=== PATIENT | female | born 1970 | race African-American/Black ===

== ENCOUNTER 2018-12-13 21:22 | Emergency (ER) | payer OTHER ==
[2018-12-13] MEDS ORDERED: ASPIRIN 81 MG CHEWABLE TAB PO ONE (21:43)
--- NOTE | 2018-12-13 21:47 | EDPHY ---
H & P Stated Complaint: C/O lt shoulder pain sat- today pain rad to front of chest Time Seen by Provider: 12/13/18 21:34 HPI/ROS: CHIEF COMPLAINT: Chest pain HISTORY OF PRESENT ILLNESS: The patient is a 48-year-old morbidly obese female who comes to the emergency department complaining of chest pain. She developed pain below her left shoulder blade about 2 days ago. It is been intermittent but worsens with exertion or deep inspiration. Then today around noon it began to radiate around to her chest. It is not worse with palpation or movement. No nausea vomiting or diaphoresis. No shortness of breath. No leg pain or swelling. She did drive to [place] and back 2 weeks ago. She does not smoke. No history of cardiac of pulmonary disease. Severity: Mild Modifying factors: Worsened with exertion REVIEW OF SYSTEMS: Constitutional: denies: chills, fever, recent illness, recent injury EENTM: denies: blurred vision, double vision, nose congestion Respiratory: denies: cough, shortness of breath Cardiac: See HPI denies: irregular heart rate, lightheadedness, palpitations Gastrointestinal/Abdominal: denies: abdominal pain, diarrhea, nausea, vomiting, blood streaked stools Genitourinary: denies: dysuria, frequency, hematuria, pain Musculoskeletal: See HPI denies: joint pain, muscle pain Skin: denies: lesions, rash, jaundice, bruising Neurological: denies: headache, numbness, paresthesia, tingling, dizziness, weakness Hematologic/Lymphatic: denies: blood clots, easy bleeding, easy bruising Immunologic/allergic: denies: HIV/AIDS, transplant 10 systems reviewed and negative except as noted EXAM: GENERAL: Well-appearing, morbidly obese and in no acute distress. HEAD: Atraumatic, normocephalic. EYES: Pupils equal round and reactive to light, extraocular movements intact, sclera anicteric, conjunctiva are normal. ENT: TMs normal, nares patent, oropharynx clear without exudates. Moist mucous membranes. NECK: Normal range of motion, supple without lymphadenopathy or JVD. LUNGS: Breath sounds clear to auscultation bilaterally and equal. No wheezes rales or rhonchi. HEART: Regular rate and rhythm without murmurs, rubs or gallops. ABDOMEN: Soft, nontender, normoactive bowel sounds. No guarding, no rebound. No masses appreciated. BACK: No CVA tenderness, no spinal tenderness, step-offs or deformities EXTREMITIES: Normal range of motion, no pitting or edema. No clubbing or cyanosis. NEUROLOGICAL: Cranial nerves II through XII grossly intact. Normal speech, normal gait. 5/5 strength, normal movement in all extremities, normal sensation , normal reflexes PSYCH: Normal mood, normal affect. SKIN: Warm, dry, normal turgor, no visible rashes or lesions. Source: Patient Exam Limitations: No limitations - Personal History LMP (Females 10-55): 22-28 Days Ago Current Tetanus Diphtheria and Acellular Pertussis (TDAP): Yes - Medical/Surgical History Hx Asthma: No Hx Chronic Respiratory Disease: No Hx Diabetes: No Hx Cardiac Disease: No Hx Renal Disease: No Hx Cirrhosis: No Hx Alcoholism: No Hx HIV/AIDS: No Other PMH: - Family History Significant Family History: No pertinent family hx - Social History Smoking Status: Never smoked Alcohol Use: None Constitutional: Initial Vital Signs Temperature (C) 36.6 C 12/13/18 21:32 Heart Rate 80 12/13/18 21:32 Respiratory Rate 20 12/13/18 21:32 Blood Pressure 158/109 H 12/13/18 21:32 O2 Sat (%) 97 12/13/18 21:32 O2 Delivery Mode Room Air Allergies/Adverse Reactions: No Known Allergies Allergy (Unverified 12/13/18 21:29) Home Medications: Medication Instructions Recorded NK [No Known Home Meds] 12/13/18 Medical Decision Making - Diagnostics EKG Interpretation: An EKG obtained and was read and documented in trace view. Please see trace view for full reading and report. Sinus rhythm, no acute ischemic changes Imaging: Discussed imaging studies w/ transitions rn care coordinator Radiologist ED Course/Re-evaluation: 10:20 p.m. patient's D-dimer is positive. Will send for CT angio. Patient is currently pain free. Troponin and EKG reassuring. 11:[address] negative. Patient and feel reassured. Her troponin is negative after more than day of symptoms. We discussed persistent slight risk of cardiac disease. She declines further treatment or workup. I will have her follow-up with cardiology office for stress testing. We discussed other possible etiologies as well. We discussed indications for returning to the ER. Differential Diagnosis: Partial list of the Differential diagnosis considered include but were not limited to; acute coronary disease, PE, musculoskeletal pain, GERD and although unlikely based on the history and physical exam, I also considered pneumothorax, biliary disease. - Data Points Medications Given: Discontinued Medications Aspirin (Aspirin) 324 mg PO EDNOW ONE Stop: 12/13/18 21:44 Last Admin: 12/13/18 21:50 Dose: 324 mg Point of Care Test Results: CBC CBC Collection Date 12/13/18 CBC Collection Time 21:32 WBC 6.66 RBC 4.21 HGB 11.2 HCT 34.9 PLT 248 Neut # 3.29 Neut 49.4 LYMPH # 2.86 LYMPH 42.9 MCV 82.9 Chemistry 12/13/18 12/13/18 21:48 21:47 POC Sodium 138 mEq/L mEq/L (135-145) POC Potassium 3.9 mEq/L mEq/L (3.3-5.0) POC Chloride 104.0 mEq/L mEq/L (97-110) POC Total CO2 27 mEq/L mEq/L (22-31) POC BUN 11 mg/dL mg/dL (7-23) POC Creatinine 0.7 mg/dL mg/dL (0.6-1.0) POC Glucose 95 mg/dL mg/dL (70-100) POC Calcium 9.1 mg/dL mg/dL (8.5-10.4) POC Total Bilirubin 0.7 mg/dL mg/dL (0.1-1.4) POC AST 22 IU/L IU/L (14-46) POC ALT 11 IU/L IU/L (9-52) POC Alk Phosphatase 72 IU/L IU/L (38-126) POC Troponin I 0.00 ng/mL ng/mL (0.00-0.08) POC Total Protein 8.3 g/dL H g/dL (6.3-8.2) POC Albumin 3.2 g/dL L g/dL (3.5-5.0) D-Dimer D-Dimer Collection Date 12/13/18 D-Dimer Collection Time 22:19 D-Dimer (ng/ml) 520 Departure - Departure Disposition: Home, Routine, Self-Care Clinical Impression: Chest pain Qualifiers: Chest pain type: unspecified Qualified Code(s): R07.9 - Chest pain, unspecified Condition: Fair Instructions: Chest Pain (ED) Referrals: Patient,NotPresent [Primary Care Provider] - As per Instructions Kayla Hartmann MD [Medical Doctor] - 2-3 days without fail
--- NOTE | 2018-12-13 21:49 | CPEKG ---
Test Reason : OPEN Blood Pressure : / mmHG Vent. Rate : 078 BPM Atrial Rate : 078 BPM P-R Int : 162 ms QRS Dur : 109 ms QT Int : 375 ms P-R-T Axes : 016 -29 010 degrees QTc Int : 428 ms Sinus rhythm Borderline left axis deviation Abnormal R-wave progression, early transition Confirmed by Denzel Jensen ([id number]) on 12/13/2018 9:48:42 PM Referred By: Denzel Jensen Confirmed By:Denzel Jensen
[2018-12-13] MEDS ORDERED: IOPAMIDOL (ISOVUE 370) 100 ML BTL IV ONE (22:25)
[2018-12-13 23:04] VITALS: BP 137/62
== END 2018-12-13 23:02 | disposition home or self-care (01) ==
LOC: CED 21:22
DX: R07.9 Chest pain, unspecified (principal)
CPT/HCPCS: 71046-PO; 71275-PO; 80053-ER; 84484-ER; 85025-QW-ER; 85379-QW-ER; 99285-ER; Q9967